=== PATIENT | female | born 1955 | race Caucasian/White ===

== ENCOUNTER 2021-07-26 14:02 | Outpatient (CLI) | payer BC | END 2021-07-26 14:03 | disposition home or self-care (01) | LOC: MRI 14:02 | PROVIDERS: ATTEND Internal Medicine Gastroenterology | DX: K86.2 Cyst of pancreas (principal); R10.11 Right upper quadrant pain; K59.09 Other constipation; E66.01 Morbid (severe) obesity due to excess calories; K76.89 Other specified diseases of liver; N28.1 Cyst of kidney, acquired; E16.2 Hypoglycemia, unspecified; Z86.010 Personal history of colon polyps | CPT/HCPCS: 74183 ==